=== PATIENT | female | born 1970 | race Caucasian/White ===

== ENCOUNTER 2025-02-12 04:20 | Emergency (ER) | payer MEDICARE, MEDICAID ==
[~2025-02-12] VITALS: Ht 162.6 cm; Wt 168.2 kg
--- NOTE | 2025-02-12 05:07 | Physician Documentation ---
History of Present Illness ~ Chief Complaint: Back Pain Stated Complaint: BACK PAIN Time Seen by MD: 05:07 HPI Patient presents to the emergency room with 1-2 weeks of acute on chronic back pain. She occasionally has taken some diclofenac for it last time two days ago. No bladder or bowel incontinence. Patient has history of back pain and has a chiropractor. She states that the back pain was getting better however this evening she got to get out of bed in his suddenly got worse. Medication Reconciliation Allergies: Coded Allergies: amoxicillin (Verified Allergy, Unknown, 02/12/25) ampicillin (Verified Allergy, Unknown, 02/12/25) Review of Systems ROS All review of systems negative except as per HPI Physical Exam Physical Exam Vital Signs: Temperature: 98.1, Source: Oral, Heart Rate: 72, Respiratory Rate: 16, BP: 153/74, Pulse Oximetry: 98, Weight: 168.180 Oxygen Flow Rate: 0 Physical Exam General: Patient is awake, alert, oriented x4 in no acute distress Head: Normocephalic and atraumatic. Eyes: Conjunctival normal. EOMI. PERRL. ENT: Mucous membranes moist. Neck: Supple, trachea is midline. Chest: Clear to auscultation bilaterally without rales, rhonchi, or wheezes. There is no accessory muscle use or retractions. Cardiac: RRR without murmurs, gallops, or rubs. Back: Diffuse lumbar tenderness to palpation without point tenderness over spinous process Progress Results/Orders Results/Orders Vital Signs 02/12/25 04:22 Temp 98.1 Pulse 72 Resp 16 B/P (MAP) 153/74 Pulse Ox 98 O2 Flow Rate 0 Medical Decision Making Findings Patient presents to the emergency room with acute on chronic back pain. Differentials include but are not limited to muscle strain, aortic pathology, cauda equina, shingles. Given history and physical exam and he had not feel patient is suffering from aortic pathology or shingles. No evidence/symptoms of cauda equina. Patient is far under dosing her pain regimen. She is established with multiple doctors for her orthopedic problems. She has a scheduled CT scan this week for investigation of her back and he had not feel she requires emergent CT scan/MRI. Departure Disposition: HOME / SELF CARE / HOMELESS Impression: Primary Impression: Low back pain Condition: Stable Discharge Instructions: Chronic Pain, Adult Additional Instructions: Avoid bedrest. Over the counter anti-inflammatories can be of help such as ibuprofen Referrals: NO PRIMARY CARE PROVIDER (PCP) Prescriptions Cyclobenzaprine* (Cyclobenzaprine*) 10 Mg Tablet 1 TAB PO Q8H for muscle spasms for 10 Days, #30 TAB 0 Refills Prov: TARIQ RUTHERFORD MD 02/12/25 Hydrocodone Bit/Acetaminophen 5/325 MG ([place] 5/325 MG) 5 Mg/325 Mg Tablet 1-2 TAB PO Q4-6 hours PRN for pain, #12 TAB Prov: TARIQ RUTHERFORD MD 02/12/25 Signature Scribe Signature: No scribe Attestation: The note accurately reflects work and decisions made by me.Tariq Rutherford MD 02/12/25 05:22 TARIQ RUTHERFORD MD Feb 12, 2025 05:07
[2025-02-12] MEDS ORDERED: HYDR-3965 PO (05:21)
[2025-02-12] MEDS ORDERED: CYCL-1 PO (05:21)
[2025-02-12] MEDS: ketorolac trometh 15mg/ml vial 15 MG/ML ML IM ONE (05:23)
[2025-02-12 05:40] VITALS: BP 150/72; PULSE 69; RESP 18; TEMP 98.6; O2SAT 99
== END 2025-02-12 05:40 | disposition home or self-care (01) ==
LOC: ER 04:21
DX: M54.50 Low back pain, unspecified (principal); Z88.0 Allergy status to penicillin
CPT/HCPCS: 96372; 99283; J1885